=== PATIENT | male | born 1970 ===

== ENCOUNTER → 2018-02-04 | Outpatient (CLI) | payer SELFPAY | END | disposition home or self-care (01) | LOC: PLD 07:36 → LAB SHORT 07:36 | DX: L72.11 Pilar cyst (principal) | CPT/HCPCS: 88304 ==

== ENCOUNTER → 2024-05-24 | Outpatient (CLI) | payer SELFPAY | LOC: LAB 05-23 08:07 | DX: L72.12 Trichodermal cyst (principal) | CPT/HCPCS: 88304 ==